=== PATIENT | male | born 2000 | race Caucasian/White ===

== ENCOUNTER 2025-08-31 10:34 | Emergency (ER) | payer BC, SELFPAY ==
--- NOTE | ~2025-08-31 | XR_ITS ---
EXAMINATION: XR chest 1V portable 08/31/2025 10:49 INDICATION: Chest pain PROCEDURE: AP portable chest COMPARISON: No prior studies for comparison. FINDINGS: The lungs are clear. The cardiomediastinal silhouette is within normal limits. There are no pleural effusions. There is no pneumothorax suspected. IMPRESSION: 1: NO ACUTE CARDIOPULMONARY DISEASE. Reviewed, dictated and finalized at location I. ER BUNCHER OPERATOR
--- NOTE | ~2025-08-31 | CT_ITS ---
CTA CHEST CLINICAL HISTORY: Shortness of breath . COMPARISON: X-ray today TECHNIQUE: Helical CTA performed from thoracic inlet to upper abdomen 100 mL Omnipaque 350 Coronal, sagittal reformats. Multiplanar MIPS CT images acquired with automatic exposure control for dose reduction DLP: 499 mGy-cm FINDINGS: Pulmonary arteries: No PE. Thoracic Aorta: No dissection or aneurysm. Heart/pericardium: Unremarkable. RV/LV ratio: Normal. Lungs/Pleura: Clear. Tracheobronchial tree: Patent. Nodes: No enlarged nodes. Bones: No acute bony abnormality. Soft tissues: Unremarkable. Visualized upper abdomen: Unremarkable. IMPRESSION: 1. No PE or other acute cardiopulmonary findings. Reviewed, dictated and finalized at location R. EL DEDENTING MACHINE OPERATOR
--- NOTE | 2025-08-31 10:41 | ECG_ITS ---
Test Date: 2025-08-31 10:50:21 Measurements Intervals [place]mer Rate: 79 P: 40 FL: 154 QRS: 84 QRSD: 102 T: 8 QT: 351 QTc: 404 Interpretive Statements SINUS RHYTHM INCOMPLETE RIGHT BUNDLE BRANCH BLOCK MINIMAL Q WAVES- ANTEROLAT/INF LEADS BASELINE ARTIFACT- I, II, AVR, AVL, V1, V5 BORDERLINE ECG No previous ECG available for comparison Electronically Signed On 08-31-2025 13:14:21 [employer] by Juan Zapien D.O.
--- NOTE | 2025-08-31 10:41 | ED_ITS ---
HPI - Chest Pain General Chief Complaint: Chest Pain Stated Complaint: chest discomfort Time Seen by Provider: 08/31/25 10:41 Source: patient and EMS Mode of arrival: EMS Limitations: no limitations History of Present Illness HPI narrative: 24 years old white male came to the ED by ambulance with intermittent episodes of chest pain, shortness of breath, palpitation, lightheadedness, dizziness, shaking started 2 months ago. Got worse today while driving. Patient pulled over and call 911. On arrival to the ED patient main complaint is chest. Patient denies any fever, chills, nausea, vomiting. Patient denies any recent stress, patient smoke cigarettes occasionally, does not drink or use drugs. Patient works in the construction business. Patient reports his symptom usually comes at rest. Patient does not take medicine at home, Related Data Home Medications ?Medication ?Instructions ?Recorded ?Confirmed ?Last Taken ?Type No Home Medications 08/31/25 08/31/25 U nknown History Allergies Allergy/AdvReac Type Severity Reaction Status Date / Time No Known Allergies Allergy Verified 08/31/25 10:46 Review of Systems 2 Review of Systems: All systems reviewed & are unremarkable except as noted in HPI and below Exam 2 Narrative: General appearance: Well-developed, well-nourished Skin: Normal color Head: Normocephalic, nontraumatic Eyes: Clear conjunctiva ENT: Oropharynx normal, ears normal, nose normal Neck: Supple, nontender Chest and respiratory: Airway patent, no respiratory distress, no accessory muscle use Heart: Regular rate/rhythm Abdomen: Soft, nontender, no organomegaly, quiet bowel sounds Vascular: Normal peripheral pulses, normal capillary refill. Musculoskeletal: Normal range of motion, nontender back Neurologic: Alert and oriented ?3, METAL MOLDER is normal as tested, no gross motor deficit Course Vital Signs Vital signs: Vital Signs Temperature 36.9 C 08/31/25 10:57 Pulse Rate 93 08/31/25 10:57 Respiratory Rate 20 08/31/25 10:57 Blood Pressure 142/74 H 08/31/25 10:57 Pulse Oximetry 96 08/31/25 10:57 Oxygen Delivery Room Air 08/31/25 10:57 Temperature 36.9 C 08/31/25 10:57 Pulse Rate 88 08/31/25 11:03 Respiratory Rate 20 08/31/25 11:03 Blood Pressure 125/82 08/31/25 11:03 Pulse Oximetry 98 08/31/25 11:04 Oxygen Delivery Room Air 08/31/25 11:04 MDM - Chest Pain MDM Narrative Medical decision making narrative: Patient presents with chest pain, dizziness, shaking Vital signs on arrival showing blood pressure 142/74 otherwise within normal limit Physical examination showing a patient with intermittent signing otherwise unremarkable Differential diagnosis include anxiety like symptoms, electrolyte imbalance, dehydration, esophageal spasm, hyperthyroidism. Blood workup today includes CBC, CMP, troponin, TSH showed insignificant abnormality Chest x-ray showed no acute cardiopulmonary CTA rule out pulmonary embolism negative EKG on arrival showed normal sinus rhythm at 79 beats per minute nonspecific T- wave abnormality, borderline EKG Diagnosis chest pain, palpitation, The pt was discharged to home.the pt,s condition upon discharge was fair,education was provided to the pt in reference to the final impression,discharge study results,treatment,prognosis and need for follow up . Lab Data Attestation: I reviewed the patient's lab results. 08/31/25 10:54 08/31/25 10:54 Labs: Lab Results 08/31/25 Range/Units 10:54 WBC 6.7 (4.8-10.8) K/mm3 RBC 5.11 (4.70-6.10) M/mm3 Hgb 14.4 (14.0-18.0) g/dL Hct 43.3 (40.0-54.0) % MCV 84.7 (78.0-102.0) fL MCH 28.2 (27.0-31.0) pg MCHC 33.3 (32-36) g/dL RDW 12.5 (11.6-14.4) % Plt Count 385 (150-420) K/mm3 MPV 9.8 (8.7-11.0) fl Immature Gran % (Auto) 0.4 H (0.0-0.0) % Neut % (Auto) 59.0 (50.0-70.0) % Lymph % (Auto) 29.4 (18.0-42.0) % [place] % (Auto) 6.3 (2.0-11.0) % Eos % (Auto) 4.3 (1.0-6.0) % Baso % (Auto) 0.6 (0.0-1.0) % Lymph # (Auto) 1.97 (1.10-4.50) K/mm3 [place] # (Auto) 0.42 (0.10-0.90) K/mm3 Eos # (Auto) 0.29 (0.02-0.50) K/mm3 Baso # (Auto) 0.04 (0.00-0.10) K/mm3 Abs Immat Gran (auto) 0.03 H (0.00-0.00) K/mm3 Absolute Neuts (auto) 3.95 (1.70-7.20) K/mm3 Absolute Nucleated RBC 0.00 (0.00-0.00) K/mm3 Nucleated RBC % 0.0 (0-0.0) % Sodium 143 (137-145) mmol/L Potassium 4.6 (3.4-5.0) mmol/L Chloride 105 (98-107) mmol/L Carbon Dioxide 29 (22-30) mmol/L Anion Gap 9 (4-12) mmol/L BUN 14 (9-20) mg/dL Creatinine 0.97 (0.7-1.3) mg/dL Estim Creat Clear Calc 121 ml/min Estimated GFR > 60 (59 - ) Glucose 103 (65-110) mg/dL Calculated Osmolality 296 H (285-295) mOsm/kg Calcium 9.4 (8.4-10.2) mg/dL Total Bilirubin 0.3 (0.2-1.3) mg/dL AST 35 (17-59) U/L ALT 41 (6-50) U/L Alkaline Phosphatase 69 (38-126) U/L Troponin I < 0.012 (0.000-0.034) ng/mL Total Protein 7.7 (6.3-8.2) g/dL Albumin 4.6 (3.5-5.1) g/dL TSH 2.060 (0.465-4.680) uIU/mL Imaging Data My impression: Impressions Chest X-Ray 08/31/25 10:51 IMPRESSION: 1: NO ACUTE CARDIOPULMONARY DISEASE. Chest CTA 08/31/25 12:10 IMPRESSION: 1. No PE or other acute cardiopulmonary findings. Radiologist's impression: Impressions Chest X-Ray 08/31/25 10:51 IMPRESSION: 1: NO ACUTE CARDIOPULMONARY DISEASE. ECG Data EKG #1: Attestation: I personally reviewed and interpreted this ECG as follows: ECG completion date: 08/31/25 Interpretation: Normal sinus rhythm at 79 beats per minute, nonspecific T-wave abnormality, borderline EKG, no previous old EKG available for comparison Critical Care Time Critical Care Time Critical Care Time: No Discharge Plan Discharge Clinical Impression: Atypical chest pain, Palpitation Patient Disposition: Home Condition: Stable Instructions: Chest Pain (ED), Heart Palpitations (DC) Additional Instructions: Return if symptoms are worsening , call your family physician for appointment, take Tylenol, ibuprofen as as needed for aches and pain, continue home medications. Patient Language: Malawian Prescriptions: No Action No Home Medications Follow-up/Referrals: UNKNOWN,DOCTOR [Non-Staff] Quality HEART score for chest pain patients History: slightly suspicious ECG: normal Age: < or = to 45 years Risk factors: 1 or 2 risk factors Troponin: < or = to 1x normal limit Heart score: 1
[2025-08-31] MEDS: LORazepam (*CRX) 1 MG TABLET PO (10:54)
[2025-08-31 10:57] VITALS: BP 142/74; PULSE 93; RESP 20; TEMP 36.9; O2SAT 96
[2025-08-31 10:59] LABS: Hematocrit 43.3 % (40.0-54.0); Hemoglobin 14.4 g/dL (14.0-18.0); Immature Granulocyte Percent A 0.4 % (0.0-0.0); Lymphocytes Absolute Auto 1.97 K/mm3 (1.10-4.50); Mean Corpuscular HGB Conc 33.3 g/dL (32-36); Mean Corpuscular Hemoglobin 28.2 pg (27.0-31.0); Mean Corpuscular Volume 84.7 fL (78.0-102.0); Nucleated Red Blood Cells Absolute Auto 0.00 K/mm3 (0.00-0.00); Nucleated Red Blood Cells Perc 0.0 % (0-0.0); Platelet Count Result 385 K/mm3 (150-420); Red Blood Count 5.11 M/mm3 (4.70-6.10); White Blood Count 6.7 K/mm3 (4.8-10.8)
[2025-08-31 11:03] VITALS: BP 125/82; PULSE 88; RESP 20; O2SAT 96
[2025-08-31 11:04] VITALS: O2SAT 98
[2025-08-31 11:05] VITALS: PULSE 87
[2025-08-31 11:11] LABS: Alanine Aminotransferase 41 U/L (6-50); Albumin Level 4.6 g/dL (3.5-5.1); Alkaline Phosphatase 69 U/L (38-126); Anion Gap 9 mmol/L (4-12); Aspartate Amino Transferase 35 U/L (17-59); Bilirubin,Total 0.3 mg/dL (0.2-1.3); Blood Urea Nitrogen 14 mg/dL (9-20); Carbon Dioxide 29 mmol/L (22-30); Chloride 105 mmol/L (98-107); Estimated CRCL calculation 121 ml/min; Estimated Glomerular Filt Rate > 60; Sodium 143 mmol/L (137-145); Total Protein 7.7 g/dL (6.3-8.2)
[2025-08-31 11:18] LABS: Calcium 9.4 mg/dL (8.4-10.2); Glucose 103 mg/dL (65-110); Osmolality Calculated 296 mOsm/kg (285-295); Potassium 4.6 mmol/L (3.4-5.0)
[2025-08-31 11:42] LABS: Thyroid Stimulating Hormone 2.060 uIU/mL (0.465-4.680)
[2025-08-31 12:19] LABS: Troponin I < 0.012 ng/mL (0.000-0.034)
[2025-08-31 12:30] VITALS: BP 118/57; PULSE 84; RESP 20; TEMP 36.9; O2SAT 96
--- NOTE | 2025-08-31 12:35 | ED_ITS ---
HPI - Chest Pain General Chief Complaint: Chest Pain Stated Complaint: chest discomfort Time Seen by Provider: 08/31/25 10:41 Source: patient and EMS Mode of arrival: EMS Limitations: no limitations Related Data Home Medications ?Medication ?Instructions ?Recorded ?Confirmed ?Last Taken ?Type No Home Medications 08/31/25 08/31/25 U nknown History Allergies Allergy/AdvReac Type Severity Reaction Status Date / Time No Known Allergies Allergy Verified 08/31/25 10:46 Course Vital Signs Vital signs: Vital Signs Temperature 36.9 C 08/31/25 10:57 Pulse Rate 93 08/31/25 10:57 Respiratory Rate 20 08/31/25 10:57 Blood Pressure 142/74 H 08/31/25 10:57 Pulse Oximetry 96 08/31/25 10:57 Oxygen Delivery Room Air 08/31/25 10:57 Temperature 36.9 C 08/31/25 10:57 Pulse Rate 88 08/31/25 11:03 Respiratory Rate 20 08/31/25 11:03 Blood Pressure 125/82 08/31/25 11:03 Pulse Oximetry 98 08/31/25 11:04 Oxygen Delivery Room Air 08/31/25 11:04 MDM - Chest Pain Lab Data 08/31/25 10:54 08/31/25 10:54 Labs: Lab Results 08/31/25 Range/Units 10:54 WBC 6.7 (4.8-10.8) K/mm3 RBC 5.11 (4.70-6.10) M/mm3 Hgb 14.4 (14.0-18.0) g/dL Hct 43.3 (40.0-54.0) % MCV 84.7 (78.0-102.0) fL MCH 28.2 (27.0-31.0) pg MCHC 33.3 (32-36) g/dL RDW 12.5 (11.6-14.4) % Plt Count 385 (150-420) K/mm3 MPV 9.8 (8.7-11.0) fl Immature Gran % (Auto) 0.4 H (0.0-0.0) % Neut % (Auto) 59.0 (50.0-70.0) % Lymph % (Auto) 29.4 (18.0-42.0) % [place] % (Auto) 6.3 (2.0-11.0) % Eos % (Auto) 4.3 (1.0-6.0) % Baso % (Auto) 0.6 (0.0-1.0) % Lymph # (Auto) 1.97 (1.10-4.50) K/mm3 [place] # (Auto) 0.42 (0.10-0.90) K/mm3 Eos # (Auto) 0.29 (0.02-0.50) K/mm3 Baso # (Auto) 0.04 (0.00-0.10) K/mm3 Abs Immat Gran (auto) 0.03 H (0.00-0.00) K/mm3 Absolute Neuts (auto) 3.95 (1.70-7.20) K/mm3 Absolute Nucleated RBC 0.00 (0.00-0.00) K/mm3 Nucleated RBC % 0.0 (0-0.0) % Sodium 143 (137-145) mmol/L Potassium 4.6 (3.4-5.0) mmol/L Chloride 105 (98-107) mmol/L Carbon Dioxide 29 (22-30) mmol/L Anion Gap 9 (4-12) mmol/L BUN 14 (9-20) mg/dL Creatinine 0.97 (0.7-1.3) mg/dL Estim Creat Clear Calc 121 ml/min Estimated GFR > 60 (59 - ) Glucose 103 (65-110) mg/dL Calculated Osmolality 296 H (285-295) mOsm/kg Calcium 9.4 (8.4-10.2) mg/dL Total Bilirubin 0.3 (0.2-1.3) mg/dL AST 35 (17-59) U/L ALT 41 (6-50) U/L Alkaline Phosphatase 69 (38-126) U/L Troponin I < 0.012 (0.000-0.034) ng/mL Total Protein 7.7 (6.3-8.2) g/dL Albumin 4.6 (3.5-5.1) g/dL TSH 2.060 (0.465-4.680) uIU/mL Discharge Plan Discharge Clinical Impression: Atypical chest pain, Palpitation Patient Disposition: Home Condition: Stable Instructions: Chest Pain (ED), Heart Palpitations (DC) Additional Instructions: Return if symptoms are worsening , call your family physician for appointment, take Tylenol, ibuprofen as as needed for aches and pain, continue home medications. Patient Language: Kiswahili Prescriptions: No Action No Home Medications Follow-up/Referrals: UNKNOWN,DOCTOR [Non-Staff] Quality HEART score for chest pain patients History: slightly suspicious ECG: normal Age: < or = to 45 years Risk factors: 1 or 2 risk factors Troponin: < or = to 1x normal limit Heart score: 1
== END 2025-08-31 12:30 | disposition home or self-care (01) ==
PROVIDERS: Emergency Provider Emergency Medicine; Referring Provider Internal Medicine
DX: R07.89 Other chest pain (principal); R00.2 Palpitations
CPT/HCPCS: 36415; 71045; 71275; 80053; 84443; 84484; 85025; 93005; 99284; A9270; Q9967